=== PATIENT | male | born 1940 | race Caucasian/White ===

== ENCOUNTER 2022-11-02 16:02 | Emergency (ER) | payer OTHER ==
--- OUTSIDE RECORDS SUMMARY | 2022-11-02 16:05 | XMS REPORT | Continuity of Care Document ---
:[address] [facility] t Address [address] [facility] [address] [place] [address] Care Team Providers Name Role Phone Manuel Blanco MD Primary Care Physician Problems This patient has no known problems. Allergies, Adverse Reactions, Alerts This patient has no known allergies or adverse reactions. Social History Social Habit Start Date Stop Date Quantity Comments Source Sexual orientation Method [facility] Gender identity [facility] Sex Assigned At [birth year] [facility] 00:00:00 00:00:00 Smoking Status Start Date Stop Date Source Tobacco smoking consumption unknown [facility] Medications This patient has no known medications. Procedures This patient has no known procedures. Plan of Care Planned Activity Planned Date Details Comments Source Future Scheduled 2022-09-10 COVID-19 VACCINE (#1) [facility] Test 02:43:40 [code = COVID-19 VACCINE (#1)] Future Scheduled 2022-09-10 SHINGLES VACCINES (1 [facility] Test 02:43:40 of 2) [code = SHINGLES VACCINES (1 of 2)] Future Scheduled 2022-09-10 65+ [facility] 02:[facility]:40 VACCINE (1 - PCV) [code = 65+ PNEUMOCOCCAL VACCINE (1 - PCV)] Future Scheduled 2022-09-10 INFLUENZA VACCINE Method [facility] Test 02:43:40 [code = INFLUENZA VACCINE] Results This patient has no known results.
[2022-11-02 17:05] LABS: Absolute Lymphocytes (CBC) 0.9 K/uL (0.7-4.9); Hematocrit 41.1 % (39.6-49.0); Lymphocytes % 15.9 % (15.3-44.8); MCV 97.9 fL (80-100); MPV 10.4 fL (7.6-11.3)
[2022-11-02] MEDS ORDERED: NA CHLORIDE 0.9% 1,000 ML ONE (17:07)
[2022-11-02 17:31] LABS: Albumin 3.6 g/dL (3.4-5.0); Potassium 4.5 mEq/L (3.5-5.1); Troponin High Sensitivity 11.5 pg/mL (<58.9)
--- NOTE | 2022-11-02 18:10 | RAD REPORT ---
EXAM DESCRIPTION: Sonny Single View11/02/2022 4:43 pm CLINICAL HISTORY: Hypotension COMPARISON: none FINDINGS: The lungs appear clear of acute infiltrate. The heart is normal size IMPRESSION: No acute abnormalities displayed
--- NOTE | 2022-11-02 18:27 | ER ---
Nurse's Notes [facility] Name: Fabrice James Age: 82 yrs Sex: Male : 1940 Arrival Date: 11/02/2022 Time: 16:02 Bed 13 Private MD: Diagnosis: Dehydration Presentation: 11/02 16:07 Chief complaint: Patient states: having intermittent foggy vision in both eyes since iw this morning, and his BP was low today 88/49, reports feeling dizzy light headed , intermittent , worse today. Coronavirus screen: At this time, the client does not indicate any symptoms associated with coronavirus-19. Ebola Screen: Patient negative for fever greater than or equal to 101.5 degrees Fahrenheit, and additional compatible Ebola Virus Disease symptoms Patient denies exposure to infectious person. Patient denies travel to an Ebola-affected area in the 21 days before illness onset. No symptoms or risks identified at this time. Initial Sepsis Screen: Does the patient meet any 2 criteria? No. Patient's initial sepsis screen is negative. Does the patient have a suspected source of infection? No. Patient's initial sepsis screen is negative. Risk Assessment: Do you want to hurt yourself or someone else? Patient reports no desire to harm self or others. Onset of symptoms was November 02, 2022. 16:07 Method Of Arrival: Wheelchair iw 16:07 Acuity: WALTER 2 iw Triage Assessment: 19:15 Pain: Denies pain. nj1 Historical: - Allergies: 16:10 ambien; iw - PMHx: 16:10 PTSD; COPD; Diabetes mellitus; CHF; Heart murmur; Anxiety; Depressive disorder; iw Hypertensive disorder; - PSHx: 16:10 right hip; Cholecystectomy; Appendectomy; iw - Immunization history:: Adult Immunizations up to date. - Social history:: Smoking status: Patient denies any tobacco usage or history of. - Family history:: not pertinent. Screenin:06 Abuse screen: Denies threats or abuse. Denies injuries from another. Nutritional nj1 screening: No deficits noted. Tuberculosis screening: No symptoms or risk factors identified. 19:15 [facility] ED Fall Risk Assessment (Adult) History of falling in the last 3 months, nj1 including since admission No falls in past 3 months (0 pts) Confusion or Disorientation No (0 pts) Intoxicated or Sedated No (0 pts) Impaired Gait Yes (1 pt) Mobility Assist Device Used Yes (1 pt) Altered Elimination No (0 pt) Score/Fall Risk Level 0 - 2 = Low Risk Oriented to surroundings, Maintained a safe environment, Hourly rounding (assess needs \\T\\ fall precautionary measures) done. Assessment: 17:05 General: Appears in no apparent distress. comfortable, Behavior is calm, cooperative, nj1 appropriate for age. Neuro: Level of Consciousness is awake, alert, obeys commands, Oriented to person, place, time, situation. Cardiovascular: Patient's skin is warm and dry. Respiratory: Airway is patent Respiratory effort is even, unlabored. 19:00 Reassessment: Patient appears in no apparent distress at this time. Patient and/or nj1 family updated on plan of care and expected duration. Pain level reassessed. Patient is alert, oriented x 3, equal unlabored respirations, skin warm/dry/pink. Patient states feeling better. Critical care time stopped, patient has stabilized. 19:00 Reassessment: Pt able to ambulate with cane, denies dizziness, states "im ready to go [facility] home" Dr Kelly notified. Vital Signs: 16:07 BP 92 / 47; Pulse 58; Resp 16; Temp 98; Pulse Ox 97% ; Weight 94.8 kg; Height 6 ft. 0 iw in. ; Pain 5/10; 17:07 BP 90 / 50; Pulse 58; Resp 18; Pulse Ox 96% on R/A; nj1 17:36 BP 103 / 43; Pulse 55; Resp 13; Pulse Ox 93% on R/A; nj1 18:30 BP 123 / 54; Pulse 58; Resp 19; Pulse Ox 96% on R/A; nj1 19:15 BP 110 / 58; Pulse 55; Resp 18; Pulse Ox 96% on R/A; nj1 16:07 Body Mass Index 28.35 (94.80 kg, 182.88 cm) iw 16:07 Pain Scale: Adult iw ED Course: 16:04 Patient arrived in ED. iw 16:10 Triage completed. iw 16:12 Karson Kelly MD is Attending Physician. rt 16:12 Arm band placed on. iw 16:45 Chest Single View XRAY In Process Unspecified. EDMS 16:49 Angie Cardoza, RN is Primary Nurse. nj1 16:50 Inserted saline lock: 22 gauge in right antecubital area, using aseptic technique. vg1 Blood collected. 17:06 Patient has correct armband on for positive identification. Bed in low position. Call nj1 light in reach. Side rails up X 1. Adult w/ patient. 19:15 No provider procedures requiring assistance completed. nj1 19:15 IV discontinued, intact, bleeding controlled, Pressure dressing applied. nj1 Administered Medications: 17:05 Drug: NS 0.9% IV 1000 ml Route: IV; Rate: 1 bolus; Site: right antecubital; nj1 19:00 Follow up: Response: No adverse reaction; IV Status: Completed infusion; IV Intake: nj1 1000ml Medication: 19:15 VIS not applicable for this client. nj1 Intake: 19:00 IV: 1000ml; Total: 1000ml. nj1 Outcome: 18:26 Discharge ordered by MD. rt 19:15 Discharged to home ambulatory, with family. nj1 19:15 Condition: stable 19:15 Discharge instructions given to patient, family, Instructed on discharge instructions, follow up and referral plans. safety practices, Demonstrated understanding of instructions, follow-up care. 19:30 Patient left the ED. nj1 Signatures: Dispatcher [employer] EDMS Zee Dorsey RN RN iw Nova Wiley RN RN vg1 Karson Kelly MD MD rt Angie Cardoza RN RN nj1 Corrections: (The following items were deleted from the chart) 19:32 19:15 Reassessment: Patient appears in no apparent distress at this time. Patient nj1 and/or family updated on plan of care and expected duration. Pain level reassessed. Patient is alert, oriented x 3, equal unlabored respirations, skin warm/dry/pink. Patient states feeling better. Critical care time stopped, patient has stabilized. nj1
--- NOTE | 2022-11-02 18:27 | EDPHYS ---
Physician Documentation [facility] Name: Fabrice James Age: 82 yrs Sex: Male : 1940 Arrival Date: 11/02/2022 Time: 16:02 Bed 13 Private MD: ED Physician Karson Kelly HPI: 11/02 16:40 This 82 yrs old Male presents to ER via Wheelchair with complaints of Low BP, Vision rt Problem. 16:40 Patient presents to the ED with an episode of low blood pressure, dizziness. Reports rt his blood pressure was about 82/60. He states that he felt lightheaded at that time. Patient states that he had a fog in his vision. Denies any eye pain. Patient states that he feels better at this time, feels back to baseline. Denies other acute complaints at this time. Symptoms are moderate severity, no other aggravating alleviating factors.. Historical: - Allergies: 16:10 ambien; iw - PMHx: 16:10 PTSD; COPD; Diabetes mellitus; CHF; Heart murmur; Anxiety; Depressive disorder; iw Hypertensive disorder; - PSHx: 16:10 right hip; Cholecystectomy; Appendectomy; iw - Immunization history:: Adult Immunizations up to date. - Social history:: Smoking status: Patient denies any tobacco usage or history of. - Family history:: not pertinent. ROS: 16:40 Constitutional: Negative for fever, chills, and weight loss, Cardiovascular: Negative rt for chest pain, palpitations, and edema, Respiratory: Negative for shortness of breath, cough, wheezing, and pleuritic chest pain, MS/Extremity: Negative for injury and deformity, Skin: Negative for injury, rash, and discoloration, Psych: Negative for depression, anxiety, suicide ideation, homicidal ideation, and hallucinations. 16:40 Eyes: Positive for blurry vision, visual disturbance. 16:40 Abdomen/GI: Positive for diarrhea, Negative for abdominal pain, nausea and vomiting. 16:40 Neuro: Positive for near syncope, Negative for altered mental status, loss of consciousness. Exam: 16:40 Constitutional: This is a well developed, well nourished patient who is awake, alert, rt and in no acute distress. Head/Face: Normocephalic, atraumatic. Eyes: Pupils equal round and reactive to light, extra-ocular motions intact. Lids and lashes normal. Conjunctiva and sclera are non-icteric and not injected. Cornea within normal limits. Periorbital areas with no swelling, redness, or edema. Chest/axilla: Normal chest wall appearance and motion. Nontender with no deformity. No lesions are appreciated. Cardiovascular: Regular rate and rhythm with a normal S1 and S2. No gallops, murmurs, or rubs. Normal PMI, no JVD. No pulse deficits. Respiratory: Lungs have equal breath sounds bilaterally, clear to auscultation and percussion. No rales, rhonchi or wheezes noted. No increased work of breathing, no retractions or nasal flaring. Abdomen/GI: Soft, non-tender, with normal bowel sounds. No distension or tympany. No guarding or rebound. No evidence of tenderness throughout. Skin: Warm, dry with normal turgor. Normal color with no rashes, no lesions, and no evidence of cellulitis. MS/ Extremity: Pulses equal, no cyanosis. Neurovascular intact. Full, normal range of motion. Neuro: Awake and alert, GCS 15, oriented to person, place, time, and situation. Cranial nerves II-XII grossly intact. Motor strength 5/5 in all extremities. Sensory grossly intact. Cerebellar exam normal. Normal gait. Psych: Awake, alert, with orientation to person, place and time. Behavior, mood, and affect are within normal limits. 16:40 ENT: Dry Mucous membrane. 16:40 ECG was reviewed by the Attending Physician. Vital Signs: 16:07 BP 92 / 47; Pulse 58; Resp 16; Temp 98; Pulse Ox 97% ; Weight 94.8 kg; Height 6 ft. 0 iw in. ; Pain 5/10; 17:07 BP 90 / 50; Pulse 58; Resp 18; Pulse Ox 96% on R/A; nj1 17:36 BP 103 / 43; Pulse 55; Resp 13; Pulse Ox 93% on R/A; nj1 18:30 BP 123 / 54; Pulse 58; Resp 19; Pulse Ox 96% on R/A; nj1 19:15 BP 110 / 58; Pulse 55; Resp 18; Pulse Ox 96% on R/A; nj1 16:07 Body Mass Index 28.35 (94.80 kg, 182.88 cm) iw 16:07 Pain Scale: Adult iw MDM: 16:15 Patient medically screened. rt 19:36 Differential Diagnosis Intravascular volume depletion, dysrhythmia, sepsis, anemia. rt Data reviewed: vital signs, nurses notes. Consideration of Admission/Observation Escalation of care including admission/observation considered. Symptoms improving with IV fluids, discussed and offered admission to the patient, he states he is strongly desirous of discharge, is ambulatory without difficulty. Still wishes to go home, return precautions were discussed with patient, patient to follow-up with primary care.. I considered the following discharge prescriptions or medication management in the emergency department Medications were administered in the Emergency Department. See MAR. Test considered but Not performed: CT: No head trauma, focal neurologic deficits, CT scan of the head not indicated. Counseling: I had a detailed discussion with the patient and/or guardian regarding: the historical points, exam findings, and any diagnostic results supporting the discharge/admit diagnosis, lab results, radiology results, the need for outpatient follow up, to return to the emergency department if symptoms worsen or persist or if there are any questions or concerns that arise at home. 11/02 16:28 Order name: CBC with Diff; Complete Time: 17:49 rt 11/02 16:28 Order name: CMP; Complete Time: 17:49 rt 11/02 16:28 Order name: Troponin High Sensitivity; Complete Time: 17:49 rt 11/02 16:28 Order name: Chest Single View XRAY; Complete Time: 18:14 rt 11/02 16:28 Order name: EKG; Complete Time: 16:29 rt 11/02 16:28 Order name: EKG - Nurse/Tech; Complete Time: 16:38 rt EC:40 Rate is 58 beats/min. Rhythm is regular, Normal Sinus Rhythm with No ectopy. QRS [place] rt is Normal. ME interval is normal. QRS interval is normal. QT interval is normal. No Q waves. T waves are Normal. No ST changes noted. Interpreted by me. Administered Medications: 17:05 Drug: NS 0.9% IV 1000 ml Route: IV; Rate: 1 bolus; Site: right antecubital; nj1 19:00 Follow up: Response: No adverse reaction; IV Status: Completed infusion; IV Intake: nj1 1000ml Disposition Summary: 11/02/22 18:26 Discharge Ordered Location: Home rt Problem: new rt Symptoms: have improved rt Condition: Stable rt Diagnosis - Dehydration rt Followup: rt - With: Private Physician - When: 2 - 3 days - Reason: Discharge Instructions: - Discharge Summary Sheet rt - Dehydration, Elderly rt Forms: - Medication Reconciliation Form rt - Thank You Letter rt - Antibiotic Education rt - Prescription Opioid Use rt Signatures: Dispatcher [employer] Zee Ornelas RN RN iw Karson Kelly MD MD rt Angie Cardoza RN RN nj1
[2022-11-02 19:46] VITALS: TEMP 98
[2022-11-02 19:53] VITALS: O2SAT 96
[2022-11-02 19:55] VITALS: BP 110/58
--- NOTE | 2022-11-03 05:33 | EKG ---
Test Date: 2022-11-02 Test Time: 16:34:29 Health Clinician: GOLD MEASUREMENT RESULTS: Intervals: Rate: 58 HI: 230 QRSD: 86 QT: 422 QTc: 414 [place]: P: 46 HI: 230 QRS: 74 T: 46 INTERPRETIVE STATEMENTS: Sinus bradycardia with 1st degree AV block Otherwise normal ECG No previous ECG available for comparison Electronically Signed On 11-03-22 05:32:22 CDT by Stephen Sr
== END 2022-11-02 19:30 | disposition home or self-care (01) ==
LOC: ER 16:02
DX: E86.0 Dehydration (principal); R19.7 Diarrhea, unspecified; I10 Essential (primary) hypertension; Z88.8 Allergy status to other drugs, medicaments and biological substances
CPT/HCPCS: 85025; 36415; 84484; 80053; 71045; J7030; 93005